=== PATIENT | female | born 1970 | race Caucasian/White ===

== ENCOUNTER 2016-08-29 13:48 | Emergency (ER) | payer OTHER ==
[~2016-08-29] VITALS: Ht 175.3 cm; Wt 81.3 kg
[~2016-08-29 13:48] MED LIST: DAILY VITAMIN1 EAC8 PO; FISH OIL500 MG PO; FLAX OIL1000 MG PO; LOW DOSE ASPIRI81 M1 PO; NIACIN500 M4 PO; NOHOMEMEDS; ONE DAILY WOME1 EACH PO; PERCOCET 5/31 TABLET PO; PRILOSEC40 MG PO; ZOFRAN4 MG PO
[2016-08-29 14:03] VITALS: BP 119/80
[2016-08-29] MEDS ORDERED: FLEXERIL5 MG PO (16:43)
[2016-08-29] MEDS ORDERED: MOTRIN600 MG PO (16:43)
[2016-08-29] MEDS ORDERED: FLONASE16 G1 BOTH NARES (16:49)
== END 2016-08-29 17:02 | disposition home or self-care (01) ==
LOC: RME 13:48 → EME 13:48 → RME 17:02
DX: S66.911A Strain of unspecified muscle, fascia and tendon at wrist and hand level, right hand, initial encounter (principal); S66.912A Strain of unspecified muscle, fascia and tendon at wrist and hand level, left hand, initial encounter; S20.212A Contusion of left front wall of thorax, initial encounter; V47.5XXA Car driver injured in collision with fixed or stationary object in traffic accident, initial encounter; W22.10XA Striking against or struck by unspecified automobile airbag, initial encounter; R51 Headache; R05 Cough; Z79.82 Long term (current) use of aspirin
CPT/HCPCS: 71020; 73110; 99281; 99284